=== PATIENT | male | born 1995 | race Caucasian/White ===

== ENCOUNTER 2021-12-04 09:30 | Outpatient (RCR) | payer OTHER, SELFPAY | END 2022-05-10 16:12 | disposition home or self-care (01) | LOC: HO.OT 09:30 | PROVIDERS: Visit Provider Physician Assistant Surgical | DX: S61.211D Laceration without foreign body of left index finger without damage to nail, subsequent encounter (principal) | CPT/HCPCS: 97110; 97112; 97140; 97165 ==